=== PATIENT | female | born 1995 | race Caucasian/White ===

== ENCOUNTER → 2020-11-21 02:44 | Outpatient (CLI) | payer OTHER, SELFPAY ==
[2020-11-21 21:05] LABS: SARS-CoV-2 RNA PCR Negative
== END ==
PROVIDERS: Visit Provider Surgery
DX: Z01.812 Encounter for preprocedural laboratory examination (principal); Z20.822 Contact with and (suspected) exposure to COVID-19
CPT/HCPCS: C9803; U0003; U0005

== ENCOUNTER 2020-11-21 08:18 | Outpatient (CLI) | payer OTHER, SELFPAY ==
[2020-11-21 09:06] LABS: Alanine Aminotransferase 13 U/L (4-35); Albumin Level 3.9 g/dL (3.5-5.1); Alkaline Phosphatase 67 U/L (38-126); Amylase 52 U/L (30-110); Aspartate Amino Transferase 18 U/L (14-36); Bilirubin,Total 0.3 mg/dL (0.2-1.3); Lipase 27 U/L (23-300)
== END 2020-11-21 08:19 | disposition home or self-care (01) ==
LOC: ANHLAB 08:21
PROVIDERS: Visit Provider Surgery
DX: K80.10 Calculus of gallbladder with chronic cholecystitis without obstruction (principal); Z01.818 Encounter for other preprocedural examination
CPT/HCPCS: 36415; 80076; 82150; 83690; 86850; 86900; 86901; C9803; U0003; U0005

== ENCOUNTER 2020-11-24 01:01 | Day surgery (SDC) | payer OTHER, SELFPAY ==
[2020-11-15 16:00] VITALS: BMI 69.0
--- NOTE | 2020-11-23 09:34 | WPDANESEPPF ---
Anes - Initial Pre Proc Eval Procedure: Operation Date: 11/24/20 14:30 Proposed Procedures p Laparoscopic Cholecystectomy, Possible Open - Josselyn Munoz MD Date/Time: 11/23/20 09:34 Surgeon: Josselyn Munoz MD Pre Op Diagnosis: Chronic Cholecystitis with Calculus Patient Data Age: 25 Gender: F Height: 1.65 m Weight: 188.24 kg Allergies Allergy/AdvReac Type Severity Reaction Status Date / Time No Known Allergies Allergy Verified 11/24/20 13:02 Home Medications Medication Instructions Recorded Confirmed Type No Home Medications 07/18/20 11/24/20 History Patient hx anesthesia problems: none Family hx anesthesia problems: none PMFSH Family History Family History Mother Diabetes mellitus Social History Social History Smoking status: Never smoker Alcohol intake: never 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 Questions were solicited and answers provided to the satisfaction of the patient/family/POA.
[2020-11-24] VITALS (8 sets, daily range): BP systolic 107–153; BP diastolic 61–83; PULSE 62–98; RESP 12–20; TEMP 36.2–36.8; O2SAT 97–100
--- NOTE | 2020-11-24 11:08 | WPDHPUPDATE1 ---
History and Physical Update Update Date/Time: 11/24/20 11:08 History and Physical has been reviewed, including an updated exam of the patient. There are NO changes in the patient's condition. Risks, benefits, and alternatives have been discussed and questions answered. Patient agrees to proceed with procedure. Pt c increasing symptoms and decision to proceed c cholecystectomy at this time.
[2020-11-24] MEDS: ACETAMINOPHEN 500 MG TABLET 1000 MG PO (13:21)
[2020-11-24] MEDS: LACTATED RINGERS 1,000 ML 30 ML IV CONT ×2 (13:45→16:35)
[2020-11-24] MEDS: KETOROLAC 15 MG/ML VIAL (*BKC) IV PUSH (13:53)
[2020-11-24] MEDS: ceFAZolin 3 GM/D5W 100 ML 100 ML IVPB (15:06)
[2020-11-24] MEDS: BUPIVACAINE/EPINEPHRINE 0.5% 30 ML VIAL INFILTRATE (15:25)
--- NOTE | 2020-11-24 16:21 | P.OP_ITS ---
Procedure Note - Detailed Date of procedure: 11/24/20 Pre-op diagnosis: Chronic Cholecystitis with Calculus Post-op diagnosis: other (chronic cholecystitis c cholelithiasis, hydrops) Procedure performed: laparoscopic cholecystectomy Description of procedure: The patient was taken to the operating room placed in the supine position. After adequate induction of general anesthesia, the patient was prepped and draped in normal sterile fashion. A time-out was then performed to verify the patient's identity as well as the procedure being performed. I then made a 5 mm incision in the infraumbilical region. Through this, a Veress needle was placed into the peritoneal cavity and CO2 gas was then insufflated. After adequate pneumoperitoneum was achieved, the Veress needle was removed and a 5 mm trocar was placed through this incision. I then placed the laparoscope through this trocar site and under direct visualization placed a further 12 mm subxiphoid port as well as 2 additional 5 mm ports in the right upper abdomen. The gallbladder was then identified and was noted to be moderately inflamed and full of stones. I was able to place a grasper at the dome of the gallbladder and this was retracted anterior and cephalad up over the liver. A 2nd retractor was then placed at the infundibulum and retracted laterally, this allowed visualization of the triangle of Calot. I then was able to visualize the cystic duct in its entirety from its proximal insertion into the gallbladder, to its distal junction with the common hepatic/common bile duct junction. At this point, I carefully skeletonized the proximal cystic duct with the [place] dissector. I then clipped and transected the proximal cystic duct. At this point, the patient was noted to have hydrops cholecystitis. Next I visualized the cystic artery. Again the artery was skeletonized, clipped, and transected. I then used the Bovie cautery to take down the peritoneal attachments of the gallbladder off the liver bed. Once the gallbladder specimen was completely detached, an endo-pouch was placed through the 12 mm port site. I then placed the gallbladder specimen into the Endo pouch and removed the endo- pouch from the 12 mm port site. The specimen will now be sent to pathology for further review. I then copiously irrigated the right upper quadrant. Hemostasis was noted in the liver bed, the clips were noted to be in good position on both the cystic duct stump and the cystic artery stump. No other pathology was noted in the right upper quadrant. I then moved the laparoscope to the subxiphoid port. No iatrogenic injury or other pathology was noted in the lower abdomen. At this point, the abdomen was desufflated and all ports removed. The fascia of the 12 mm subxiphoid port was closed with a 0 Vicryl figure of 8 suture. All port sites were then closed with 4.O Monocryl subcuticular sutures. Dermabond was placed on each incision. The patient tolerated the procedure well, was extubated in the operating room postoperative and will be transferred to the recovery room in stable condition. Implants: none Anesthesia: GETA Surgeon: Josselyn Munoz MD Estimated blood loss (mL): 10 Drains: No Packing: No Pathology: yes Complications: No immediate complications Condition: stable Disposition: PACU Findings: chronic cholecystitis, cholelithiasis, hydrops
[2020-11-24] MEDS: fentaNYL CITRATE INJ (*CRX) 100 MCG/2 ML VIAL 25 MCG IV PUSH ×4 (16:49→16:57)
== END 2020-11-24 18:07 | disposition home or self-care (01) ==
PROVIDERS: Visit Provider Surgery
PROC: 0FT44ZZ Resection of Gallbladder, Percutaneous Endoscopic Approach (ICD-10-PCS; CPT 47562; principal; 2020-11-24 14:30)
DX: K80.10 Calculus of gallbladder with chronic cholecystitis without obstruction (principal); E66.01 Morbid (severe) obesity due to excess calories; Z68.44 Body mass index [BMI] 60.0-69.9, adult
CPT/HCPCS: 47562; 88304; A9270; J0690; J1100; J1885; J2250; J2405; J2704; J2710; J3010; J7030; J7120

== ENCOUNTER 2024-11-24 08:41 | Emergency (ER) | payer OTHER, SELFPAY ==
[2024-11-24 08:46] VITALS: BP 145/81; PULSE 91; RESP 20; TEMP 37.1; O2SAT 95
--- NOTE | 2024-11-24 08:52 | ED.URI ---
HPI - URI/Sore Throat General Chief Complaint: Upper Respiratory Infection Stated Complaint: cough/sob/aches Source: patient Mode of arrival: ambulatory Limitations: no limitations History of Present Illness HPI Narrative: 29-year-old female presented for complaint of cough, shortness of breath with exertion, body aches and low-grade fever. Onset 2 days. Denies nausea vomiting, diarrhea or lethargy. Taking [id number] medicines for symptoms. Endorses exposure to pneumonia. Related Data Allergies Allergy/AdvReac Type Severity Reaction Status Date / Time No Known Allergies Allergy Verified 11/24/24 08:50 Review of Systems Review of Systems: CONSTITUTIONAL:reports body aches, fever, chills EYES: Denies visual changes, redness, or discharge. ENT: Denies rhinorrhea, congestion, sore throat, or otalgia. CARDIOVASCULAR: Denies chest pain, palpitations, or edema. RESPIRATORY: Reports cough, sob with exertion denies wheezing. GASTROINTESTINAL: Denies abdominal pain, nausea, vomiting, or diarrhea. MUSCULOSKELETAL: reports back pain with cough. NEUROLOGIC: Denies headache, numbness, tingling, or weakness. 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 Please see nursing chart for further information. There is no relevant family history pertinent to the presenting complaint Exam Narrative: GENERAL: Well-appearing, in no acute distress. EYES: EOMI. No redness or drainage. Conjunctivae normal. ENT: Mucous membranes pink and moist. No rhinorrhea. TMs normal bilaterally. Throat normal. Uvula midline. NECK: Normal AROM. Supple. CHEST: No respiratory distress. lungs clear to all renee. speaks full sentences. HEART: Regular rate and rhythm. No murmur appreciated. ABDOMEN: Soft, large, nontender, nondistended, normal active bowel sounds. EXTREMITIES: Normal range of motion. SKIN: Warm, dry, no rash. Capillary refill normal. Normal skin turgor. NEURO: Alert and oriented x3. Gait steady. Course Course Emergency Course: Patient is aware of diagnosis, understands and agrees to treatment plan. Anticipatory guidance given. Patient agrees to follow-up as directed and is aware of reasons to seek care at the emergency department. Portions of this record may have been created with voice recognition software Level of Care: Express Care Visit Vital Signs Vital signs: Vital Signs Temperature 98.7 F 11/24/24 08:46 Pulse Rate 91 11/24/24 08:46 Respiratory Rate 20 11/24/24 08:46 Blood Pressure 145/81 H 11/24/24 08:46 Pulse Oximetry 95 11/24/24 08:46 Oxygen Delivery Room Air 11/24/24 08:46 Temperature 98.7 F 11/24/24 08:46 Pulse Rate 91 11/24/24 08:46 Respiratory Rate 20 11/24/24 08:46 Blood Pressure 145/81 H 11/24/24 08:46 Pulse Oximetry 95 11/24/24 08:46 Oxygen Delivery Room Air 11/24/24 08:46 MDM - URI/Sore Throat MDM Narrative Medical decision making narrative: neg flu and covid. Reviewed RX's. Discussed physical exam findings. Advised supportive measures and signs/symptoms to go to the ER. Pt is appropriate for outpt treatment and f/u. Differential Diagnosis Differential diagnosis: Likely upper respiratory infection, sinusitis, viral infection, bronchitis, influenza and pharyngitis Lab Data Labs: Lab Results 11/24/24 Range/Units 09:06 POC Influenza A Ag Pending POC Influenza B Ag Pending POC SARS CoV-2 Ag Pending Discharge Plan Discharge Clinical Impression: Viral infection Patient Disposition: Home, Self-Care Condition: Stable Instructions: Acute Bronchitis (ED) Additional Instructions: Flu and COVID negative. Acute bronchitis can be contagious because it is usually caused by infection with a virus or bacteria. It is usually for a few days but you can be contagious for up to one week. Avoid crowds until you do not have a fever and symptoms are improved Take medication as directed over the counter Cough syrup may cause drowsiness; avoid driving or take it at night time. Tylenol 1000mg every 8 hours as needed for pain Symptomatic treatment includes: rest, fluids, and increase humidity of the air at home. Follow up with your primary care provider as needed in 1 week Go to the ER for worsening symptoms or concerns Patient Language: Chinese Prescriptions: New benzonatate 200 mg capsule 200 mg PO TID PRN (Reason: cough) Qty: 20 0RF methylprednisolone [Medrol (Zuhair)] 4 mg tablets,dose pack See Rx Instructions .ROUTE .COMPLEX Qty: 21 0RF Rx Instructions: orally per package directions albuterol sulfate 90 mcg/actuation HFA aerosol inhaler 2 inh inhalation QID PRN (Reason: shortness of breath or wheezing) Qty: 8.5 0RF Follow-up/Referrals: Isa,HAIDER Boggs [Primary Care Provider] - Stand Alone Forms: Work/School Release IP Time of Disposition: 09:09
--- OUTSIDE RECORDS SUMMARY | 2024-11-24 08:58 | XMS_ITS | Data Portability ---
Author Organization [facility] Address [address] [place] [address] Care Team Providers Care Claims Adjuster Crop Name Role Phone TONYA, FLAKITA Primary Care Provider Assessment Encounter Date Assessment Date Assessment LastModified by Organization Details LastModified Time 12/11/2021 12/11/2021 Ms. Landry presented via telephone communication with c/o cough, stuffy nose x 1 week. Patient states she was treated for sinus infection a x 1 week ago with no improvement. Patient reports stomach cramps and diarrhea have resolved. Not available 12/11/2021 10:00:14 01/03/2022 01/03/2022 Ms. Landry presented via telephone communication with continued c/o cough, chest congestion and stuffy nose x 3 weeks. Not available 01/03/2022 14:53:03 02/21/2022 02/21/2022 Ms. Landry presented in office today for f/u appointment. Patient with c/o small whitish yellow debris on tonsils. Patient reports increased anxiety when driving. Not available 02/23/2022 13:00:47 05/07/2024 05/07/2024 Ms. Landry presented to the office today to reestablish care, having not been seen since February 2022. 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 The patient reports symptoms of pink-tinged urine and increased urinary frequency. Not available 05/09/2024 20:41:57 05/25/2024 05/25/2024 Ms. Landry presented to the ER on May 10 and May 20 with complaints of recurrent urinary tract infections (UTIs). She completed an 8-day course of antibiotics with reported improvement in her UTI symptoms. However, she is now experiencing left-sided pain and back pain. Not available 05/25/2024 17:26:43 Plan of Treatment Reminders Order Date Submit Date Provider Last Modified By Organization Details Last Modified Time Details Appointments None recorded. Lab culture, urine 2023 024 [facility], [address], [place], [address], 4 12:40:24 HIV 1 + 2, meaningfu l use set 2023 024 HERMILA [facility], [address], [place], [address], 4 07:14:08 urinalysi s, dipstick 2023 024 HERMILA In-Office Order, Internal Use Only DO Not Attach Compendium DO Not Attach Compendium, Do Not Delete/merge, [id number] 4 16:21:51 culture, urine 2023 024 HERMILA [facility], [address], [place], [address], 4 17:07:32 lipid panel, serum 2023 024 HERMILA [facility], [address], [place], [address], 4 10:37:09 HbA1c (hemoglob in A1c), blood 2023 024 HERMILA [facility], [address], [place], [address], 4 10:37:10 CMP, serum or plasma 2023 024 HERMILA [facility], [address], [place], [address], 4 10:37:09 CBC w/ auto diff 2023 024 HERMILA [facility], [address] [facility], [facility] [address], [place], [address], 4 10:37:11 vitamin D, 25-hydrox y, total, serum 2023 024 HERMILA [facility], [address] [facility], [facility] [address], [place], [address], 4 10:37:12 Referral gynecolog ist referral 2023 024 [email or web address] Radha [facility], [address] [facility] , [address], [place], [address], 5 15:12:11 Procedures None recorded. Surgeries None recorded. Imaging US, kidney 2023 024 [facility] ([facility], [address] [place], [address], 4 11:53:16 Medication Orders sulfameth oxazole 800 mg-trimet hoprim 160 mg tablet 2023 024 [id number], [address] , [place], [place], [id number], 4 17:19:06 Zithromax Z-Zuhair 250 mg tablet 2021 022 tkinerdma [facility] #[id number], [address], [place], [place], [id number], 2 15:12:05 fluticaso ne propionat e 50 mcg/actua tion nasal spray,mc pension 2021 022 [facility] #[id number], [address], [place], [place], [id number], 2 15:12:08 Patient TargetsNo targets recorded. Patient Instructions Encounter Date Encounter Id Patient Instructions Last Modified By Organization Details Last Modified Time 12/11/2021 [id number] This visit was completed via telephone due to the restrictions of the COVID 19 pandemic. All issues were discussed and addressed but no physical exam was performed. If at any time during this visit it was deemed necessary for the patient to be evaluated in office, then he/she would be directed to come in for an office visit. The patient gave verbal consent to this visit. - Always present to ER or Urgent Care with any progression of/alarming symptoms, significant changes in symptoms or any concerning or urgent matters I have reviewed the provider's note and I agree with the documented assessment and plan. Moni Pablo MD [email or web address] Not available 12/12/2021 08:11:25 01/03/2022 [id number] This visit was completed via telephone due to the restrictions of the COVID 19 pandemic. All issues were discussed and addressed but no physical exam was performed. If at any time during this visit it was deemed necessary for the patient to be evaluated in office, then he/she would be directed to come in for an office visit. The patient gave verbal consent to this visit. - Always present to ER or Urgent Care with any progression of/alarming symptoms, significant changes in symptoms or any concerning or urgent matters Not available 01/03/2022 14:55:06 02/21/2022 [id number] learning about low-carbohydrate diets Not available 02/23/2022 13:07:20 tonsil stones: care instructions Not available 02/21/2022 15:38:11 - Always present to ER or Urgent Care with any progression of/alarming symptoms, significant changes in symptoms or any concerning or urgent matters Not available 02/23/2022 13:00:43 05/07/2024 [id number] A healthy lifestyle: care instructions Not available 05/09/2024 20:40:53 - limit/avoid consumption of processed foods. choose a diet rich in fruits, and vegetables, low fat, low carbs. - Eat less salt (sodium) - exercise for at least 30 minutes a day on most days of the week - Limit the amount of caffeine and alcohol you drink - work on obtaining and maintaining a healthy weight Not available 05/09/2024 20:41:28 - Always present to ER or Urgent Care with any progression of/alarming symptoms, significant changes in symptoms or any concerning or urgent matters Not available 05/07/2024 15:31:13 05/25/2024 [id number] - Always present to ER or Urgent Care with any progression of/alarming symptoms, significant changes in symptoms or any concerning or urgent matters Not available 05/25/2024 16:48:22 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 Sc reening for malignant neoplasm of cervix Referring Physician: Flakita Castaneda, Family Medicine, Encounter Date: 05/25/2024 Results Created Date Observation Date Name Description Value Unit Range Abnormal Flag Note LastModifiedBy Organization Detail LastModifiedTime 05/07/20 24 05/08/2024 LIPID PANEL cholesterol, total 194 mg/dL 100-19 9 Not Available [facility] ([facility]) [address] [place], [address], 05/08/2024 10:37:09 05/07/20 24 05/08/2024 LIPID PANEL triglyceride s 257 mg/dL 0-149 above high normal Not Available [facility] ([facility]) [address] [place], [address], 05/08/2024 10:37:09 05/07/20 24 05/08/2024 LIPID PANEL HDL cholesterol 36 mg/dL >39 below low normal Not Available [facility] ([facility]) [address] [place], [address], 05/08/2024 10:37:09 05/07/20 24 05/08/2024 LIPID PANEL VLDL cholesterol jonas 45 mg/dL 5-40 above high normal Not Available [facility] ([facility]) [address] [place], [address], 05/08/2024 10:37:09 05/07/20 24 05/08/2024 LIPID PANEL LDL chol calc ([facility]) 113 mg/dL 0-99 above high normal Not Available [facility] ([facility]) [address] [place], [address], 05/08/2024 10:37:09 05/07/20 24 05/08/2024 COMP. METAB OLIC PANEL (14) glucose - mg/dL Test not perfo rmed. Serum was in conta ct with cells when recei filipe which will make the resul t inacc urate . Not Available [facility] ([facility]) [address] [place], [address], 05/08/2024 10:37:09 05/07/20 24 05/08/2024 COMP. METAB OLIC PANEL (14) BUN 12 mg/dL 6-20 Not Available [facility] ([facility]) [address] [place], [address], 05/08/2024 10:37:09 05/07/20 24 05/08/2024 COMP. METAB OLIC PANEL (14) creatinine 0.62 mg/dL 0.57-1 .00 Not Available [facility] ([facility]) [address] [place], [address], 05/08/2024 10:37:09 05/07/20 24 05/08/2024 COMP. METAB OLIC PANEL (14) eGFR 124 mL/mi n/1.7 3 >59 Not Available [facility] ([facility]) [address] [place], [address], 05/08/2024 10:37:09 05/07/20 24 05/08/2024 COMP. METAB OLIC PANEL (14) BUN/creatini ne ratio 19 9-23 Not Available [facility] ([facility]) [address] [place], [address], 05/08/2024 10:37:09 05/07/20 24 05/08/2024 COMP. METAB OLIC PANEL (14) sodium 139 mmol/ L 134-14 4 Not Available [facility] ([facility]) [address] [place], [address], 05/08/2024 10:37:09 05/07/20 24 05/08/2024 COMP. METAB OLIC PANEL (14) potassium - mmol/ L Test not perfo rmed. Serum was in conta ct with cells when recei filipe which will make the resul t inacc urate . Not Available [facility] ([facility]) [address] [facility] [place], [address], 05/08/2024 10:37:09 05/07/20 24 05/08/2024 COMP. METAB OLIC PANEL (14) chloride 102 mmol/ L 96-106 Not Available [facility] ([facility]) [address] [facility] [place], [address], 05/08/2024 10:37:09 05/07/20 24 05/08/2024 COMP. METAB OLIC PANEL (14) carbon dioxide, total 21 mmol/ L 20-29 Not Available [facility] ([facility]) [address] [facility], [place], [address], 05/08/2024 10:37:09 05/07/20 24 05/08/2024 COMP. METAB OLIC PANEL (14) calcium 9.3 mg/dL 8.7-10 .2 Not Available [facility] ([facility]) [address] [place], [address], 05/08/2024 10:37:09 05/07/20 24 05/08/2024 COMP. METAB OLIC PANEL (14) protein, total 6.9 g/dL 6.0-8. 5 Not Available [facility] ([facility]) [address] [facility] [place], [address], 05/08/2024 10:37:09 05/07/20 24 05/08/2024 COMP. METAB OLIC PANEL (14) albumin 4.1 g/dL 4.0-5. 0 Not Available [facility] ([facility]) [address] [place], [address], 05/08/2024 10:37:09 05/07/20 24 05/08/2024 COMP. METAB OLIC PANEL (14) globulin, total 2.8 g/dL 1.5-4. 5 Not Available [facility] ([facility]) [address] [facility], [place], [address], 05/08/2024 10:37:09 05/07/20 24 05/08/2024 COMP. METAB OLIC PANEL (14) bilirubin, total 0.2 mg/dL 0.0-1. 2 Not Available [facility] ([facility]) [address] [place], [address], 05/08/2024 10:37:09 05/07/20 24 05/08/2024 COMP. METAB OLIC PANEL (14) alkaline phosphatase 71 IU/L 44-121 Not Available [facility] ([facility]) [address] [place], [address], 05/08/2024 10:37:09 05/07/20 24 05/08/2024 COMP. METAB OLIC PANEL (14) AST (SGOT) 16 IU/L 0-40 Not Available [facility] ([facility]) [address] [place], [address], 05/08/2024 10:37:09 05/07/20 24 05/08/2024 COMP. METAB OLIC PANEL (14) ALT (SGPT) 17 IU/L 0-32 Not Available [facility] ([facility]) [address] [place], [address], 05/08/2024 10:37:09 05/07/20 24 05/08/2024 HEMOG LOBIN A1C hemoglobin A1C 5.8 % 4.8-5. 6 above high normal Predi abete s: 5.7 - 6.4 Diabe betty: >6.4 Glyce stacy contr ol for adult s with diabe betty: <7.0 Not Available [facility] ([facility]) [address] [facility], [place], [address], 05/08/2024 10:37:10 05/07/20 24 05/08/2024 CBC WITH DIFFE RENTI AL/PL ATELE T WBC 12.6 x10e3 /uL 3.4-10 .8 above high normal Not Available [facility] ([facility]) [address] [facility], [place], [address], 05/08/2024 10:37:11 05/07/20 24 05/08/2024 CBC WITH DIFFE RENTI AL/PL ATELE T RBC 4.74 x10e6 /uL 3.77-5 .28 Not Available [facility] ([facility]) [address] [facility], [place], [address], 05/08/2024 10:37:11 05/07/20 24 05/08/2024 CBC WITH DIFFE RENTI AL/PL ATELE T hemoglobin 13.1 g/dL 11.1-1 5.9 Not Available [facility] ([facility]) [address] [facility], [place], [address], 05/08/2024 10:37:11 05/07/20 24 05/08/2024 CBC WITH DIFFE RENTI AL/PL ATELE T hematocrit 40.6 % 34.0-4 6.6 Not Available [facility] ([facility]) [address] [place], [address], 05/08/2024 10:37:11 05/07/20 24 05/08/2024 CBC WITH DIFFE RENTI AL/PL ATELE T MCV 86 fL 79-97 Not Available [facility] ([facility]) [address] [facility], [place], [address], 05/08/2024 10:37:11 05/07/20 24 05/08/2024 CBC WITH DIFFE RENTI AL/PL ATELE T MCH 27.6 pg 26.6-3 3.0 Not Available [facility] ([facility]) [address] [facility], [place], [address], 05/08/2024 10:37:11 05/07/20 24 05/08/2024 CBC WITH DIFFE RENTI AL/PL ATELE T MCHC 32.3 g/dL 31.5-3 5.7 Not Available [facility] ([facility]) [address] [facility], [place], [address], 05/08/2024 10:37:11 05/07/20 24 05/08/2024 CBC WITH DIFFE RENTI AL/PL ATELE T RDW 14.5 % 11.7-1 5.4 Not Available [facility] ([facility]) [address] [facility], [place], [address], 05/08/2024 10:37:11 05/07/20 24 05/08/2024 CBC WITH DIFFE RENTI AL/PL ATELE T platelets 382 x10e3 /uL 150-45 0 Not Available [facility] ([facility]) [address] [facility], [place], [address], 05/08/2024 10:37:11 05/07/20 24 05/08/2024 CBC WITH DIFFE RENTI AL/PL ATELE T neutrophils 65 % notest ab. Not Available [facility] ([facility]) [address] [place], [address], 05/08/2024 10:37:11 05/07/20 24 05/08/2024 CBC WITH DIFFE RENTI AL/PL ATELE T lymphs 27 % notest ab. Not Available [facility] ([facility]) [address] [place], [address], 05/08/2024 10:37:11 05/07/20 24 05/08/2024 CBC WITH DIFFE RENTI AL/PL ATELE T monocytes 5 % notest ab. Not Available [facility] ([facility]) [address] [place], [address], 05/08/2024 10:37:11 05/07/20 24 05/08/2024 CBC WITH DIFFE RENTI AL/PL ATELE T eos 1 % notest ab. Not Available [facility] ([facility]) [address] [facility], [place], [address], 05/08/2024 10:37:11 05/07/20 24 05/08/2024 CBC WITH DIFFE RENTI AL/PL ATELE T basos 1 % notest ab. Not Available [facility] ([facility]) [address] [facility], [place], [address], 05/08/2024 10:37:11 05/07/20 24 05/08/2024 CBC WITH DIFFE RENTI AL/PL ATELE T neutrophils (absolute) 8.4 x10e3 /uL 1.4-7. 0 above high normal Not Available [facility] ([facility]) [address] [facility], [place], [address], 05/08/2024 10:37:11 05/07/20 24 05/08/2024 CBC WITH DIFFE RENTI AL/PL ATELE T lymphs (absolute) 3.4 x10e3 /uL 0.7-3. 1 above high normal Not Available [facility] ([facility]) [address] [place], [address], 05/08/2024 10:37:11 05/07/20 24 05/08/2024 CBC WITH DIFFE RENTI AL/PL ATELE T monocytes(ab solute) 0.6 x10e3 /uL 0.1-0. 9 Not Available [facility] ([facility]) [address] [place], [address], 05/08/2024 10:37:11 05/07/20 24 05/08/2024 CBC WITH DIFFE RENTI AL/PL ATELE T eos (absolute) 0.1 x10e3 /uL 0.0-0. 4 Not Available [facility] ([facility]) [address] [facility], [place], [address], 05/08/2024 10:37:11 05/07/20 24 05/08/2024 CBC WITH DIFFE RENTI AL/PL ATELE T baso (absolute) 0.1 x10e3 /uL 0.0-0. 2 Not Available [facility] ([facility]) [address] [facility], [place], [address], 05/08/2024 10:37:11 05/07/20 24 05/08/2024 CBC WITH DIFFE RENTI AL/PL ATELE T immature granulocytes 1 % notest ab. Not Available [facility] ([facility]) [address] [facility], [place], [address], 05/08/2024 10:37:11 05/07/20 24 05/08/2024 CBC WITH DIFFE RENTI AL/PL ATELE T immature grans (abs) 0.1 x10e3 /uL 0.0-0. 1 Not Available [facility] ([facility]) [address] [facility], [place], [address], 05/08/2024 10:37:11 05/07/20 24 05/08/2024 VITAM IN D, 25-HY DROXY vitamin D, 25-hydroxy 14.9 NG/mL 30.0-1 00.0 below low normal Vitam in D defic iency has been defin ed by the Insti tute of Medic ine and an Endoc rine Socie ty pract ice guide line as a level of serum 25-OH vitam in D less than 20 ng/mL (1,2) . The Endoc rine Socie ty went on to furth er defin e vitam in D insuf ficie ncy as a level betwe en 21 and 29 ng/mL (2). 1. IOM (Inst itute of Medic ine). 2010. Dieta ry refer ence juan es for calci um and D. Jin smith [place]: The [employer] n[employer] . 2. Holic tara MF, Antonella mcgrath [place], Mallory off-F errar i ELLIOTT, et al. Evalu ation , treat ment, and preve ntion of vitam in D defic iency : an Endoc rine Socie ty clini jonas pract ice guide line. JCEM. 2010; 96(7) :1911 -30. Not Available [facility] ([facility]) [address] [facility], [place], [address], 05/08/2024 10:37:12 05/07/20 24 05/10/2024 URINE CULTU RE, ROUTI NE urine culture, routine FINAL REPORT Not Available [facility] ([facility]) [address] [facility], [place], [address], 05/10/2024 17:07:32 05/07/20 24 05/10/2024 URINE CULTU RE, ROUTI NE result 1 COMMEN T Mixed uroge nital amira 25,00 0-50, 000 colon y formi ng units per mL Not Available [facility] ([facility]) [address] [facility], [place], [address], 05/10/2024 17:07:32 05/07/20 24 05/07/2024 urina lysis , dipst ick Leukocytes Negati ve Not Available In-Office Order Internal Use Only DO Not Attach Compendium DO Not Attach Compendium, Do Not Delete/merge, [id number] 05/07/2024 15:28:39 05/07/20 24 05/07/2024 urina lysis , dipst ick Nitrite negati ve Not Available In-Office Order Internal Use Only DO Not Attach Compendium DO Not Attach Compendium, Do Not Delete/merge, [id number] 05/07/2024 15:28:39 05/07/20 24 05/07/2024 urina lysis , dipst ick Urobilinogen .2 Not Available In-Of fice Order Internal Use Only DO Not Attach Compendium DO Not Attach Compendium, Do Not Delete/merge, [id number] 05/07/2024 15:28:39 05/07/20 24 05/07/2024 urina lysis , dipst ick Protein Negati ve Not Available In-Office Order Internal Use Only DO Not Attach Compendium DO Not Attach Compendium, Do Not Delete/merge, 05/07/2024 15:28:39 05/07/20 24 05/07/2024 urina lysis , dipst ick pH 5.0 Not Available In-Office Order Internal Use Only DO Not Attach Compendium DO Not Attach Compendium, Do Not Delete/merge, 05/07/2024 15:28:39 05/07/20 24 05/07/2024 urina lysis , dipst ick Blood Negati ve Not Available In-Office Order Internal Use Only DO Not Attach Compendium DO Not Attach Compendium, Do Not Delete/merge, 05/07/2024 15:28:39 05/07/20 24 05/07/2024 urina lysis , dipst ick Specific [place] 1.030 Not Available In-Off ice Order Internal Use Only DO Not Attach Compendium DO Not Attach Compendium, Do Not Delete/merge, 05/07/2024 15:28:39 05/07/20 24 05/07/2024 urina lysis , dipst ick Ketone Negati ve Not Available In-Office Order Internal Use Only DO Not Attach Compendium DO Not Attach Compendium, Do Not Delete/merge, 05/07/2024 15:28:39 05/07/20 24 05/07/2024 urina lysis , dipst ick Bilirubin Negati ve Not Available In-Office Order Internal Use Only DO Not Attach Compendium DO Not Attach Compendium, Do Not Delete/merge, 05/07/2024 15:28:39 05/07/20 24 05/07/2024 urina lysis , dipst ick Glucose Negati ve Not Available In-Office Order Internal Use Only DO Not Attach Compendium DO Not Attach Compendium, Do Not Delete/merge, 05/07/2024 15:28:39 05/07/20 24 05/07/2024 urina lysis , dipst ick Appearance Slight ly Cloudy Not Available In-Office Order Internal Use Only DO Not Attach Compendium DO Not Attach Compendium, Do Not Delete/merge, [id number] 05/07/2024 15:28:39 05/07/20 24 05/07/2024 urina lysis , dipst ick Color Dark Yellow Not Available In-Office Order Internal Use Only DO Not Attach Compendium DO Not Attach Compendium, Do Not Delete/merge, [id number] 05/07/2024 15:28:39 05/25/20 24 05/26/2024 HIV AB/P2 4 AG WITH REFLE X HIV Ab/P24 Ag screen NON REACTI VE nonrea ctive HIV-1 /HIV- 2 antib odies and HIV-1 p24 antig en were NOT detec ra. There is no labor atory evide nce of HIV infec tion. HIV Negat laurent Not Available [facility] ([facility]) [address] [facility], [place], [address], 05/26/2024 07:14:08 Result Notes None recorded. Problems Name Problem SNOMED Code Status Onset Date Resolution Date Notes Provider Name and Address Organization Details Recorded Time Acute pharyngitis 934926584 Active 2017 FLAKITA CASTANEDA NP Attn: Ludwin salinas,[address] [facility], [place], [address], [facility] 1 13:00:56 Acute bronchitis 18410872 Active 2018 FLAKITA CASTANEDA NP Attn: Accountin g,[address] [facility], [place], [address], [place] - [facility] 1 13:00:56 History of SARS-CoV-2 6398160643996 61470 Active 2020 FLAKITA CASTANEDA NP Attn: Ludwin g,[address] [facility], [place], [address], [place] - [facility] 1 14:53:58 Prediabetes 514059254 Active 2020 FLAKITA CASTANEDA NP Attn: Accountin g,[address] [facility], [place], [address], [place] - [facility] 4 14:15:12 Hemorrhoids 71416365 Active 2020 FLAKITA CASTANEDA NP Attn: Quanpaulina salinas,[address] [facility], [place], [place], [address] [place] [address] 2, [place] - [facility] 1 14:54:03 Pneumonia caused by SARS-CoV-2 9611004049160 54975 Active 2020 FLAKITA CASTANEDA NP Attn: Quanpaulina salinas,[address] [facility], [place], [place], [address] [place] [address] 2, [place] - [facility] 1 14:54:46 Vitamin D deficiency 03039359 Active 2023 FLAKITA CASTANEDA NP Attn: Ludwin brad,[address] [place], [place], [address] [place] [address] 2, [place] - [facility] 4 14:15:39 Recurrent urinary tract infection 346896528 Active 2023 FLAKITA CASTANEDA NP Attn: Quanpaulina salinas,[address] [place], [place], [address] [place] [address] 2, [place] - [facility] 4 17:25:01 Left flank pain 791160105 Active 2023 FLAKITA CASTANEDA NP Attn: Quanpaulina salinas,[address] [facility], [place], [place], [address] [place] [address] 2, [place] - [facility] 4 17:25:03 Secondary eczematous condition 969249599 Active FLAKITA CASTANEDA NP Attn: Quanpaulina salinas,[address] [facility], [place], [place], [address] [place] [address] 2, [place] - [facility] 1 02:20:13 Morbid obesity 203348077 Active FLAKITA CASTANEDA NP Attn: Quanpaulina salinas,[address] [place] [address], [address] [place] [address] 2, [place] - [facility] 1 02:20:13 Pleurisy 432156671 Active FLAKITA CASTANEDA NP Attn: Quanpaulina salinas,[address] [place], [place], [address] [place] [address] 2, [place] - [facility] 1 02:20:13 Problem Notes None recorded. Procedures Surgical History Date Name Laterality Status Provider Name and Address Organization Details Recorded Time 11/25/19 21 cholecystectomy completed Radha Soto [place] - [facility] 01/02/2021 12:51:24 Imaging Results None recorded. Procedure Notes None recorded. Medical Equipment None Reported. Allergies No known drug allergies Medications Name Sig Start Date Stop Date Status Note LastModified by Organization Details LastModified Time amoxicillin 500 mg capsule TAKE 1 CAPSULE BY MOUTH THREE TIMES DAILY FOR 14 DAYS 01/03 completed Not Available Not Available Not Available azithromyci n 250 mg tablet TK 2 TS PO ON DAY 1, THEN TK 1 T PO D FOR 4 DAYS 02/21 completed Not Available Not Available Not Available phenazopyri dine 200 mg tablet TAKE 1 TABLET BY MOUTH THREE TIMES DAILY FOR 3 DAYS 05/25 completed Not Available Not Available Not Available ondansetron HCl 4 mg tablet 01/03 completed Not Available Not Available Not Available dexamethaso ne 6 mg tablet 01/03 completed Not Available Not Available Not Available triamcinolo ne acetonide 0.5 % topical ointment PPLY A THIN LAYER TO THE AFFECTED AREA(S) BY TOPICAL ROUTE ONCE DAILY Q HS 02/01 completed Not Available Not Available Not Available sulfamethox azole 800 mg-trimetho prim 160 mg tablet Take 1 tablet every 12 hours by oral route for 7 days. active Not Available Not Available No t Available tramadol 50 mg tablet TAKE 1 TABLET BY MOUTH EVERY 8 HOURS NEEDED FOR MODERATE TO SEVERE PAIN 01/03 completed Not Available Not Available Not Available amoxicillin 500 mg tablet TAKE 1 TABLET BY MOUTH TWICE DAILY FOR 7 DAYS 05/07 completed Not Available Not Available Not Available benzonatate 100 mg capsule TAKE 1 CAPSULE BY MOUTH THREE TIMES DAILY FOR UP TO 10 DAYS NEEDED FOR COUGH 05/07 completed Not Available Not Available Not Available cephalexin 500 mg capsule TAKE 1 CAPSULE BY MOUTH THREE TIMES DAILY FOR 7 DAYS 05/25 completed Not Available Not Available Not Available polymyxin B sulfate 10,000 unit-trimet hoprim 1 mg/mL eye drops 05/07 completed Not Available Not Available Not Available Cataflam 50 mg tablet Take 1 tablet 3 times a day by oral route. 12/18 completed rx'd by er Not Available Not Available Not Available ergocalcife rol (vitamin D2) 1,250 mcg (50,000 unit) capsule TAKE 1 CAPSULE BY MOUTH EVERY WEEK active Not Available Not Available No t Available Anusol-HC 25 mg rectal suppository Insert 1 supposito ry twice a day by rectal route for 7 days. 11/22 completed Not Available Not Available Not Available methylpredn isolone 4 mg tablets in a dose pack FOLLOW PACKAGE DIRECTION S 05/07 completed Not Available Not Available Not Available albuterol sulfate HFA 90 mcg/actuati on aerosol inhaler INHALE 2 PUFFS BY MOUTH EVERY 4 TO 6 HOURS NEEDED 02/21 completed Not Available Not Available Not Available fluticasone propionate 50 mcg/actuati on nasal spray,suspe nsion [place] 1 spray every day by intranasa l route as needed. 02/21 completed Not Available Not Available Not Available doxycycline hyclate 100 mg tablet Take 1 tablet twice a day by oral route for 7 days. 08/08 completed Not Available Not Available Not Available amoxicillin 875 mg-potassiu m clavulanate 125 mg tablet TAKE 1 TABLET BY MOUTH TWICE DAILY FOR 10 DAYS 01/03 completed Not Available Not Available Not Available Benadryl 25 mg capsule Take 2 capsules every 4-6 hours by oral route. 02/01 completed Not Available Not Available Not Available nitrofurant oin monohydrate /macrocryst als 100 mg capsule TAKE 1 CAPSULE BY MOUTH TWICE DAILY FOR 7 DAYS FOR UTI 05/07 completed Not Available Not Available Not Available Mucus Relief ER 600 mg tablet, extended release TAKE 1 TABLET BY MOUTH TWICE DAILY 05/07 completed Not Available Not Available Not Available Vitals Date Recorded Body height Provider Name an d Address Organization Details Last Updated DateTime 12/11/2021 170.18 cm Myah Warner [place] [facility] 022 09:39:43 Date Recorded Body height Provider Name an d Address Organization Details Last Updated DateTime 01/03/2022 170.18 cm Carmen Fortune LPN [place] [facility] 01/03 14:28:15 Date Recorded Body height Body mass index (BMI) Body weight Oxygen saturation Oxygen saturation in Arterial blood by Pulse oximetry Heart rate Respiratory rate Body temperature Systolic blood pressure Diastolic blood pressure Provider Name and Address Organization Details Last Updated DateTime 2 170.18 cm 65 kg/m2 144012. 58 g 97 % 97 % 93 /min 16 /min 97.1 [degF] 136 mm[Hg] 86 mm[Hg] Sarah Ricardo MA [facility] 2 15:11:34 Date Recorded Body height Body mass index (BMI) Body weight Respiratory rate Body temperature Heart rate Oxygen saturation Oxygen saturation in Arterial blood by Pulse oximetry Systolic blood pressure Diastolic blood pressure Provider Name and Address Organization Details Last Updated DateTime 4 165.1 cm 68.7 kg/m2 242204. 35 g 16 /min 97.1 [degF] 84 /min 98 % 98 % 138 mm[Hg] 81 mm[Hg] Myah Warner MA [facility] 4 15:17:34 Date Recorded Body height Respiratory rate Body mass index (BMI) Body weight Body temperature Heart rate Oxygen saturation Oxygen saturation in Arterial blood by Pulse oximetry Systolic blood pressure Diastolic blood pressure Provider Name and Address Organization Details Last Updated DateTime 4 165.1 cm 16 /min 69.4 kg/m2 111104. 07 g 96.6 [degF] 70 /min 98 % 98 % 138 mm[Hg] 83 mm[Hg] Myah Warner MA [facility] 4 16:44:11 Social History Question Answer Notes LastModified by Organizat ion Details LastModified Time Tobacco Smoking Status Former Smoker Emily Serrano MA [facility], [facility] 09/14/2020 16:59:53 What Is Your Level Of Alcohol Consumption? Occasional [id number] Information not available 07/12/2020 Are You Blind Or Do You Have Difficulty Seeing? Yes Glasses Information not available 01/02/2021 What Is Your Level Of Caffeine Consumption? Heavy 3-4 Bottles Mtn Dew Per Day Information not available 01/02/2021 In The 14 Days Before Symptom Onset, Have You Had Close Contact With A Laboratory-breann schroedered COVID-19 While That Case Was Ill? No Information not available 11/22/2021 In The 14 Days Before Symptom Onset, Have You Had Close Contact With A Person Who Is Under Investigation For COVID-19 While That Person Was Ill? No Information not available 11/22/2021 Have You Been To An Area Known To Be High Risk For COVID-19? No Information not available 11/22/2021 Are You Currently Employed? Yes Information not available 01/02/2021 Are You Deaf Or Do You Have Serious Difficulty Hearing? No Information not available 01/02/2021 What Type Of Diet Are You Following? REGULAR Information not available 11/22/2021 What Is Your Occupation? [employer] Information not available 01/02/2021 Are There Any Guns Present In Your Home? No Information not available 05/25/2024 Live Alone Or With Others? With Others [email or web address] Information not available 12/13/2015 Do You Have A High School Diploma Or Higher Education? Yes Information not available 01/02/2021 Do You Sometimes Have To Miss Your Medical Appointments Due To Difficult Getting Transportation? No Information not available 01/02/2021 Do You Feel Unfairly Treated Due To Things Such As Race, Age, Gender, Disability Or Some Other Reason? No Information not available 01/02/2021 Do You Feel Physically And Emotionally Safe While Living At Home? Yes Information not available 01/02/2021 Do You Feel Physically And Emotionally Safe In Your Neighborhood Or Other Public Places? Yes Information not available 01/02/2021 What Was The Date Of Your Most Recent Tobacco Screening? 05/25/2024 Information not available 05/25/2024 How Many Children Do You Have? 0 [id number] Information not available 07/12/2020 What Is Your Relationship Status? Single Information not available 01/02/2021 Do You Use Your Seat Belt Or Car Seat Routinely? Yes Information not available 11/22/2021 Seat Belts Used Routinely Yes [email or web address] Information not available 12/13/2015 Smoke Alarm In Home Yes [email or web address] Information not available 12/13/2015 Do You Have Smoke And Carbon Monoxide Detectors In Your Home? Yes Information not available 01/02/2021 Are You Passively Exposed To Smoke? No Information not available 01/02/2021 Do You Feel Stressed (tense, Restless, Nervous, Or Anxious, Or Unable To Sleep At Night)? [id number] Information not available 11/22/2021 Do You Use Any Illicit Or Recreational Drugs? No Declines Information not available 01/02/2021 Do You Use Sunscreen Routinely? No Information not available 05/25/2024 Has Tobacco Cessation Counseling Been Provided? No Information not available 01/02/2021 Do You Or Have You Ever Used Any Other Forms Of Tobacco Or Nicotine? No Information not available 01/02/2021 Sex: Female Functional Status Question Answer Note LastModified by Organization D etails LastModified Time Are you able to care for yourself? Yes [id number] Information n ot available 07/12/2020 What is your exercise level? None Information not available 11/22/2021 Mental Status None recorded. Family History Relationship Description Onset Age of this Age Resolved Age Notes LastModified by Organization Details LastModified Time Mother Asthma [email or web address] Not available 12/13/2015 11:20:21 Mother Diabetes mellitus Not available 12/12 11:20:21 Brother Attention deficit hyperactivit y disorder [email or web address] Not available 12/18 16:05:03 Medical History Condition Response Coronary Artery Disease N Other N High Blood Pressure N Atrial Fibrillation N Kidney or Bladder Problems N Thyroid Problems N GI Problems N Depression N COPD N Blood Clots N Skin Problems N Anemia N Heart Attack ([place]) N Anxiety Disorder N Diabetes N Muscle, Joint, or Bone Problems N Seizures/Epilepsy N Acid Reflux (GERD) N Cancer N Stroke N Asthma N Allergies N High Cholesterol N Hepatitis N Liver Disease N Headaches N Heart Failure N Osteoporosis N Gynecological HistoryNo gynecological history recorded. Obstetrics History GPAL:G 0 P 0 0 0 0 Immunizations Vaccine Type Date Status Note Provider Nam e and Address Organization Details Recorded Time MMR 9 completed FLAKITA CASTANEDA NP Attn: Accounting,[address] [facility], [place], [address], [facility] 05/07/2024 15:29:01 MMR 5 completed FLAKITA TONYA, TANK DRIVER Attn: Accounting,[address], [place], [address], [place] [facility] 05/07/2024 15:29:01 Tdap 9 completed FLAKITA TONYA, TANK DRIVER Attn: Accounting,[address], [place], [address], [place] [facility] 05/07/2024 15:29:01 OPV 5 completed FLAKITA TONYA, TANK DRIVER Attn: Accounting,[address], [place], [address], [place] [facility] 05/07/2024 15:29:01 OPV 9 completed FLAKITA TONYA, TANK DRIVER Attn: Accounting,[address], [place], [address], [place] [facility] 05/07/2024 15:29:01 OPV 5 completed FLAKITA TONYA, TANK DRIVER Attn: Accounting,[address], [place], [address], [place] [facility] 05/07/2024 15:29:01 OPV 5 completed FLAKITA TONYA, TANK DRIVER Attn: Accounting,[address], [place], [address], [place] [facility] 05/07/2024 15:29:01 OPV 4 completed FLAKITA TONYA, TANK DRIVER Attn: Accounting,[address], [place], [address], [place] [facility] 05/07/2024 15:29:01 DTP-Hib 5 completed FLAKITA TONYA, TANK DRIVER Attn: Accounting,[address], [place], [address], [place] [facility] 05/07/2024 15:29:01 DTP-Hib 5 completed FLAKITA TONYA, TANK DRIVER Attn: Accounting,[address], [place], [place], [address] [place] [address], [place] [facility] 05/07/2024 15:29:01 DTP-Hib 5 completed FLAKITA CASTANEDA NP Attn: Accounting,[address] [place], [place], [address] [place] [address], [place] [facility] 05/07/2024 15:29:01 DTP-Hib 4 completed FLAKITA CASTANEDA NP Attn: Accounting,[address] [facility], [place], [place], [address] [place] [address], [place] [facility] 05/07/2024 15:29:01 influenza, split (incl. purified surface antigen) 9 completed FLAKITA CASTANEDA NP Attn: Accounting,[address] [place], [place], [address] [place] [address], [place] [facility] 05/07/2024 15:29:01 HPV, quadrivalent 0 completed FLAKITA CASTANEDA NP Attn: Accounting,[address] [place], [place], [address] [place] [address], [place] [facility] 05/07/2024 15:29:01 HPV, quadrivalent 9 completed FLAKITA CASTANEDA NP Attn: Accounting,[address] [place], [place], [address] [place] [address], [place] [facility] 05/07/2024 15:29:01 HPV, quadrivalent 9 completed FLAKITA CASTANEDA NP Attn: Accounting,[address] [place], [place], [address] [place] [address], [place] [facility] 05/07/2024 15:29:01 Hep B, adolescent or pediatric 4 completed FLAKITA CASTANEDA NP Attn: Accounting,[address] [place], [place], [address] [place] [address], [place] [facility] 05/07/2024 15:29:01 Hep B, adolescent or pediatric 5 completed FLAKITA CASTANEDA NP Attn: Accounting,[address] [place], [place], [address] [place] [address], [place] [facility] 05/07/2024 15:29:02 Hep B, adolescent or pediatric 4 completed FLAKITA CASTANEDA NP Attn: Accounting,[address] [facility], [place], [address], [place] [facility] 05/07/2024 15:29:02 Hep A, pediatric, unspecified formulation 0 completed FLAKITA CASTANEDA NP Attn: Accounting,[address] [facility], [place], [address], [place] [facility] 05/07/2024 15:29:02 Hep A, pediatric, unspecified formulation 9 completed FLAKITA CASTANEDA NP Attn: Accounting,[address] [facility], [place], [address], [place] [facility] 05/07/2024 15:29:02 meningococcal C conjugate 9 completed FLAKITA CASTANEDA NP Attn: Accounting,[address] [facility], [place], [address], [place] [facility] 05/07/2024 15:29:02 DTaP 9 completed FLAKITA CASTANEDA NP Attn: Accounting,[address] [facility], [place], [address], [place] [facility] 05/07/2024 15:29:02 Tdap 4 completed FLAKITA CASTANEDA NP Attn: Accounting,[address] [facility], [place], [address], [place] [facility] 05/09/2024 20:30:52 Past Encounters Encounter ID Performer Location Encounter Start Date Encounter Closed Date Diagnosis/Indication Diagnosis SNOMED-CT Code Diagnosis ICD10 Code Diagnosis Note [id number] Liya Ray ([facility]) [address] [place] [address] 12/13/2015 11:01:31 12/13/2015 12:13:24 Secondary eczematous condition 856807715 L30.8 PATIENT ADVISED TO REFRAIN FROM HOT WATER USE ON SKIN AND TO USE MILD SOAP PRODUCTS. [id number] Lyia Ray ([facility]) [address] [place] [address] 12/28/2015 09:04:21 12/28/2015 09:55:12 Morbid obesity 668687377 E66.01 [id number] Liya Hutchinson Chay ([facility]) [address] [place] [address] 02/02/2016 14:50:29 02/02/2016 15:16:00 Pleurisy 341269138 R09.1 now resolved. Taking Cataflam 50 mg tid. [id number] [facility] ([facility]) [address] [facility] [address] [place] [address] 12/18/2017 15:49:05 12/20/2017 14:58:08 Community acquired pneumonia 949794859 J18.9 Counseled on pneumonia- will repeat chest x-ray, advised good handwashin g, taking OTC medication like Mucinex as needed. f/u as needed Body mass index 40+ - severely obese 442280723 Z68.44 Depression screening 171 726500 Z13.89 [id number] TALITA Hill 14 IM [address] [facility] [address] [place] [address] 08/18/2018 11:01:20 08/19/2018 14:29:39 Adult health examination 555399784 Z00.00 Counseled on the importance of healthy diet and exercise for weight loss. Fasting lab work. Advised adequate calcium intake through dairy and dark leafy vegetables . Adequate hydration and decrease soda intake. Advised on immunizati ons-refuse s Influenza. Morbid obesity 286126748 E66.01 Body mass index 40+ - severely obese 704883970 Z68.44 [id number] TALITA Hill 14 IM [address] [facility] [address] [place] [address] 09/15/2018 11:12:50 09/16/2018 08:38:54 Morbid obesity 437534683 E66.01 Carefully monitor food intake (use Fitness pal or another way of tracking food intake). Continue current dietary habits-go back to exercising 5 days a week. Discussion > 15 minutes on diet and exercise and the importance of not quitting even when she has a bad week of eating. f/u 1 month for weigh in and review of food log Dietary ma nagement surveillance 999587503 Z71.3 High hemog lobin A1c level 766136957 R73.09 [id number] TALITA Hill 14 [address] [facility] [place] [address] 10/16/2018 10:42:53 10/16/2018 16:27:29 Morbid obesity 141932003 E66.01 Carefully monitor food intake (use Fitness pal or another way of tracking food intake). Continue current dietary habits-go back to exercising 5 days a week. Discussion > 15 minutes on diet and exercise and the importance of not quitting even when she has a bad week of eating. f/u 1 month for weigh in and review of food log-good job on weight loss so far Upper resp iratory infection 50513441 J06.9 Counseled on URI-Warm salt water gargles, rest, increase fluids. Over the counter decongesta nt. Tylenol/Ib uprofen for pain/fever , humidifier in the house. call office for any worsening of s/s Dietary gerardo yoannaracquel surveillance 969257425 Z71.3 [id number] TALITA Hill [address] [facility] [place] [address] 10/27/2018 16:48:40 10/28/2018 09:33:46 Exposure to mold 5274346390 6944728 Z77.120 Pt advised that she has no s/s nor is there a way to test for mold in the body-f/u as needed [id number] TALITA Hill 14 [address] [facility] [place] [address] 11/13/2018 10:27:43 11/13/2018 16:44:43 Morbid obesity 912600374 E66.01 Carefully monitor food intake (use Fitness pal or another way of tracking food intake). Work on going back to dietary habits-go back to exercising 5 days a week. Discussion > 15 minutes on diet and exercise and the importance of not quitting even when she has a bad week of eating. f/u 1 month for weigh in and review of food log-good job on weight loss so far Dietary gerardo brian surveillance 784736792 Z71.3 [id number] TALITA Hill [address] [facility] [address] 08/18/2019 11:17:39 08/20/2019 16:22:20 Morbid obesity 680792595 E66.01 Carefully monitor food intake (use Fitness pal or another way of tracking food intake). Work on going back to dietary habits-go back to exercising 5 days a week. Discussion > 15 minutes on diet and exercise and the importance of not quitting even when she has a bad week of eating. f/u 1 month for weigh in Dietary [facility] surveillance 098142968 Z71.3 Body mass index 40+ - severely obese 792238173 Z68.44 [id number] Maryann Ray 14 IM [address] [facility] [place] [address] 09/14/2020 08:33:35 10/08/2020 03:47:22 Morbid obesity 825354399 E66.01 Adult [facility] examination 492490455 Z00.00 [id number] Radha Soto MA [facility] [address] [place] [address] 01/02/2021 12:10:28 01/03/2021 14:28:14 Headache 00341388 R51.9 - Keep a headache diary to see if you can determine what are your headache/m igraine triggers - Take otc Excedrin migraine, eliminate mountain dew zero - Lay in a dark room if possible and try to relax - Drink plenty of water, get appropriat e rest, try auto relaxation , avoid triggers if known Body mass index 40+ - severely obese 592581680 Z68.44 - d/w patient importance of implementi ng some sort of exercise regimen at least 20-30 minutes activity/d ay, - start 100 gm low car diet, use of free carb home health care case manager matthew discussed - return for weight check next month Hyperlipid emia screening 660743410 Z13.878 [id number] FLAKITA CASTANEDA NP [facility] [address] [place] [address] 02/01/2021 10:44:07 02/01/2021 18:43:28 Morbid obesity 421253261 E66.01 - Dwp importance of consistenc y with low carb diet, and 20-30 minutes of exercise - Patient also encouraged to try and get at least 7-8 hours of sleep per night. - Dwp increase water intake to 80-120 oz per day. - RTC in 3 months Mild depression 94996000 3 F32.0 - phq-9 score positive for moderate depression . - Discussed symptoms of depression /anxiety as well as the different treatment types. - Encouraged psychother apy in adjunct with medication therapy,. Patient stated she is not interested in taking medication , agreed to speak with counselor - All questions and concerns were addressed. - Pt is to monitor symptoms and RTC sooner if symptoms are worsening or not improving. 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 Pt agreeable to plan of care.-Requ esting lab work, advised to alert PCP for routine lab work.-ER precaution s discussed. [id number] GOOD GASPAR 14 IM [address] [facility] [address] [place] [address] 08/08/2021 14:11:17 08/09/2021 16:21:27 Hemorrhoids 94963844 K64.9 History of SARS-CoV-2 29 74090352 14738128 Z86.16 - Patient test positive for COVID 19 on 07/12 Prediabetes 606622579 R7 3.03 Pneumonia caused by SARS-CoV-2 9290714136 58641363 J12.82 - Patient diagnosed with COVID pneumonia on 07/19/21. Patient reports feeling well. Dwp will repeat chest xray in 1 week. [id number] FLAKITA CASTANEDA NP [facility] [address] [place] [address] 11/22/2021 13:32:46 11/27/2021 10:22:09 Body mass index 40+ - severely obese 405343282 Z68.44 - d/w patient importance of implementi ng some sort of exercise regimen at least 20-30 minutes activity/d ay, - start 100 gm low car diet, use of free carb home health care case manager matthew discussed - return for weight check next month Sinusitis 85640978 J32.9 - reports resolve of symptoms with Loss of hair 843807624 L 65.9 [id number] Moni Pablo [facility] [address] [place] [address] 12/11/2021 08:14:13 12/14/2021 15:28:45 Sinusitis 07539215 J32.9 - Counseled on sinusitis and medication s/antibiot ic use. Ibuprofen/ Tylenol for pain. Encouraged to increase fluid intake. [id number] FLAKITA CASTANEDA NP [facility] [address] [place] [address] 01/03/2022 09:02:36 01/04/2022 10:25:29 Acute bronchitis 07172838 J20.9 Advised on the causes of bronchitis and the typical course of the disease. ATB. Instructed on the use of OTC remedies for sx management . Discussed signs of respirator y compromise . Advised on reasons to call or follow up over the next few days. Verbalized understand ing. [id number] FLAKITA CASTANEDA NP [place] [address] [place] [address] 02/21/2022 14:27:40 02/23/2022 10:42:39 Morbid obesity 535341086 E66.01 - Patient reports she has not been been following low carb- Dwp importance of consistenc y with low carb diet, and 20-30 minutes of exercise - Patient also encouraged to try and get at least 7-8 hours of sleep per night. - Dwp increase water intake to 80-120 oz per day. - RTC in 6 weeks Tonsillar debris 5069363 00 J35.8 Mild anxiety 02768761 F4 1.8 - Patient states she has been working on getting her license. Patient reports anxiety while driving. Patient denies history of anxiety.- Discussed symptoms of depression /anxiety as well as the different treatment types.- Encouraged psychother apy- All questions and concerns were addressed. - Pt is to monitor symptoms and RTC sooner if symptoms are worsening or not improving. [id number] FLAKITA CASTANEDA NP [facility] [address] [place] [address] 05/07/2024 15:00:48 05/13/2024 12:49:28 Urinary symptoms 932997108 R39.9 - Counseled thoroughly about UTI.- increase fluid intake-jani er, lemonade, cranberry juice, no tub baths, wipe front to back,- Urine for C & S Morbid obesity 693855902 E66.01 advised low fat, low cholestero l, low carb diet, regular exercise and weight reduction. Prediabetes 162325013 R7 3.03 Adult [facility] th examination 032270526 Z00.01 - Discussed with patient findings, diagnoses, and prognosis. - Discussed plan of care including treatment options, risks, and benefits with patients. Patient expressed understand ing.- The following interventi ons were recommende d: heart healthy low-fat, low-sodium diet, ideal body weight, regular exercise, medication s compliance , and medical follow-up as noted. Hyperlipid emia screening [id number] Z13.220 History an d physical examination, pre-employment [id number] Z02.1 - No restrictio ns- Assessment negative, except where indicated Administra tion of diphtheria, pertussis, and tetanus vaccine [id number] Z23 - recommende d Tdap vaccinatio n [id number] FLAKITA CASTANEDA NP [facility] [address] [place] [address] 05/25/2024 15:43:16 05/27/2024 11:38:41 Recurrent urinary tract infection [id number] N39.0 The patient has a history of recurrent UTIs and has recently completed an antibiotic course with initial symptom improvemen t. New symptoms of left flank pain may suggest a possible kidney infection or incomplete resolution of the infection. Based on the lab results from 05/20: Urinalysis Findings: Specific [place]: 1.025 (normal range)pH: 5.0 (normal range)WBC Esterase: 25 / L (positive) indicates possible infection or inflammati on.Nitrite : Negative (not indicative of bacterial infection, as nitrite is often associated with E. coli).Prot ein: 15 mg/dL (trace amount) could indicate mild proteinuri a.Bacteria : Few (positive) suggests a possible infection, though not significan t.Crystals : Calcium oxalate common and usually not clinically significan t unless symptomati c.CBC Findings: WBC: 13.14 (elevated) suggests possible infection or inflammati on.Absolut e Neutrophil s: 8.52 (elevated) supports a likely infectious process.Ab solute Lymphocyte s: 3.74 (elevated) may indicate a response to infection or another underlying issue.Hemo globin and Hematocrit : Normal but on the lower end of the reference range, which could be relevant if symptoms are chronic or if there's significan t blood loss elsewhere. Left flank pain [id number] 9 R10.9 Suspected pyelonephr itis. Differenti al diagnosis includes kidney stone, urinary tract infection, or other renal pathology. Consider CT abdomen/pe lvis if symptoms worsen or ultrasound is inconclusi ve.Follow- up in 48-72 hours or sooner if pain worsens or fever develops. HIV screening [id number] Z11.4 Screening for malignant neoplasm of cervix [id number] Z12.4 Health Concerns Section Related Observation LastModified by Organization Detai ls LastModified Time None Recorded Concern Status LastModified by Organization Details LastModified Time None Recorded Advance Directives Directive None Recorded Payers Encounter Date Sequence Insurance Name Policy Number Policy Evans Covered Member ID Evans Member ID Guarantor Name 12/11/2021 1 [facility] (MEDICAID HMO) [id number] Rima Graves [id number] Rima Gretchen Graves 01/03/2022 1 [facility] (MEDICAID HMO) [id number] Rima Graves [id number] Rima Gretchen Graves 02/21/2022 1 [facility] (MEDICAID HMO) [id number] 0003 Rima Graves [id number] Rima Gretchen Graves 05/07/2024 1 [facility] (MEDICAID HMO) [id number] 0003 Rima Graves [id number] Rima Gretchen Graves 05/25/2024 1 [facility] (MEDICAID HMO) [id number] 0003 Rima Graves [id number] Rima Gretchen Graves Notes Date Note Type Note Provider Name and Address Organization Details Recorded Time 2 text/html Sinusitis/AllergyReported bypatient.Associated Symptoms:no fever; no sore throat;headache forehead;nasal passage blockage bilaterally Quality:congested;producti ve cough Context:recent sick contacts Risk Factors:no current smoking or tobacco use Alleviating factors:nothing gives relief Prior Treatmentoral antibiotics:amoxicillian Ms. Landry presented via telephone communication with c/o cough, stuffy nose x 1 week. Patient states she was treated for sinus infection a x 1 week ago with no improvement. Patient reports stomach cramps and diarrhea have resolved. Moni chakraborty, [place] - [facility] 12/12/2021 08:11:30 2 text/html Upper Respiratory SymptomsReported bypatient.Location:head; chest Quality:productive cough;colored phlegm;congested Severity:moderate Duration:symptoms lasting over 2 weeks Onset/Timing:gradual Context:no foreign travel; non-smoker;sick contact Associated Symptoms:no shortness of breath; no wheezing; no fever;yellow sputum Ms. Landry presented via telephone communication with continued c/o cough, chest congestion and stuffy nose x 3 weeks. FLAKITA CASTANEDA NP Attn: Accounting,[address] [place], [address] 01/03/2022 14:55:28 2 text/html Anxiety/DepressionReported bypatient.Quality:increase d anxiety(while driving) Severity:denies suicidal ideations; able to maintain relationships; does not interfere with activities of daily living Duration:symptoms lasting over 2 weeks Context:major life stressors(learning how to drive) Associated Symptoms:denies homicidal ideations; no visual/auditory hallucinations;anxietyObes ityReported bypatient.Context:no inhaled steroids; no oral steroids Associated Symptoms:no depression; no hypothyroidism;chronic illness(severe obesity) Co-morbidities:no new co-morbidities since last visit Lifestyle changes:no changes in living situation; motivated to continue lifestyle changes; losing weight; exercising more Nutrition:poor compliance with diet;not restricting concentrated sugars Physical Activity:reported frequency of moderate level of physical activity per week: 2-4 days Ms. Landry presented in office today for f/u appointment. Patient with c/o small whitish yellow debris on tonsils. Patient reports increased anxiety when driving. FLAKITA CASTANEDA NP Attn: Accounting,[address] [facility], [place], [address], [facility] 02/23/2022 13:09:55 4 text/html Anxiety/DepressionReported bypatient.Quality:mood worse;increased anxiety Severity:denies suicidal ideations Context:no major life stressors Associated Symptoms:denies homicidal ideations; no visual/auditory hallucinationsUrinary FrequencyReported bypatient.Context:success with short term antibiotics; success with extermination inspector antibiotics; success with Pyridium Associated Symptoms:no abdominal pain; no back pain; no chills; no dribbling; no pain with urination; no hesitancy; no urine odor; no incontinence; no fever; no urge incontinence;blood in the urine(pink tinge when wiping);feelings of urgency Ms. Landry presented to the office today to reestablish care, having not been seen since February 2022. 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 The patient reports symptoms of pink-tinged urine and increased urinary frequency. FLAKITA CASTANEDA NP Attn: Accounting,[address] [place], [address], [facility] 05/09/2024 20:42:53 4 text/html Recurrent UTIReported bypatient.Severity:moderat e Associated Symptoms:urgency;flank pain(left);back pain Ms. Landry presented to the ER on May 10 and May 20 with complaints of recurrent urinary tract infections (UTIs). She completed an 8-day course of antibiotics with reported improvement in her UTI symptoms. However, she is now experiencing left-sided pain and back pain. FLAKITA CASTANEDA NP Attn: Accounting,[address] [place], [address], [facility] 05/25/2024 17:27:49 OBGyn Episode No OBEpisode recorded.
--- OUTSIDE RECORDS SUMMARY | 2024-11-24 08:58 | XMS_ITS | Clinical Summary ---
Author Organization [facility] Address [address] [place] [address] Phone Care Team Providers Care Personnel Records Clerk Name Role Phone Isa, Flakita Wiggins APRN, HEIKE Primary Care Provider Allergies No known active allergies Medications naproxen (NAPROSYN) 500 MG Tablet Take 1 Tablet by mouth 2 times daily (with meals). 20 Tablet 1 Active Additional Information Patient not taking.Reported on 12/22/2020 guaiFENesin (Mucinex) 600 MG TABLET SR 12 HR Take 1 Tablet by mouth 2 times daily. 30 Tablet 1 Active traMADol (ULTRAM) 50 MG Tablet Take 1 Tablet by mouth every 8 hours as needed for Moderate or more severe pain. 12 Tablet 1 Active ondansetron (ZOFRAN) 4 MG Tablet Take 1 Tablet by mouth every 6 hours as needed for Nausea - 1st line. 10 Tablet 1 Active guaiFENesin (Mucinex) 600 MG TABLET SR 12 HR Take 1 Tablet by mouth 2 times daily. 180 Tablet 3 Active methylPREDNISol one (MEDROL DOSPACK) 4 MG Tablet Therapy Pack See product package insert for dosing schedule 21 Tablet 3 Active albuterol 108 (90 Base) MCG/ACT Aerosol Solution take 2 Puffs by inhalation every 6 hours as needed for Wheezing. 8 g 3 Active ibuprofen (MOTRIN) 200 MG Tablet Take 4 Tablets by mouth every 6 hours as needed for Fever. 90 Tablet 3 Active oseltamivir (Tamiflu) 75 MG Capsule Take 1 Capsule by mouth 2 times daily for 5 days. 10 Capsule 5 11/09/19 25 benzonatate (TESSALON) 100 MG Capsule Take 1 Capsule by mouth 3 times daily as needed for Cough for up to 10 days. 30 Capsule 5 11/14/19 25 Active Problems No known active problems Encounters Date Type Department Care Team Description 11/03/2024 6:34 PM FURRIER APPRENTICE - 11/03/2024 7:04 PM FURRIER APPRENTICE Emergency [facility] [address] [place] [address] Maura Casey, SWEEP MOLDER, TAX EXAMINING TECHNICIAN Influenza A Discharge Disposition: Discharged to home or Selfcare 11/03/2024 Travel from Last 3 Months Social History Tobacco Use Types Packs/Day Years Used Date Smoking Tobacco: Former Smokeless Tobacco: Never Alcohol Use Standard Drinks/Week Comments No 0 (1 standard drink = 0.6 oz pur e alcohol) Comments No Sex and Gender Information Value Date Recorded Sex Assigned at Not on file Legal Sex Female 2:13 PM CDT Gender Identity Not on file Sexual Orientation Not on file Last Filed Vital Signs Vital Sign Reading Time Taken Comments Blood Pressure 142/84 11/03/2024 6:39 PM FURRIER APPRENTICE Pulse 78 11/03/2024 6:39 PM FURRIER APPRENTICE Temperature 37.8 C (100.1 F) 11/03/2024 4:56 PM FURRIER APPRENTICE Respiratory Rate 18 11/03/2024 6:39 PM FURRIER APPRENTICE Oxygen Saturation 100% 11/03/2024 6:39 PM FURRIER APPRENTICE Inhaled Oxygen Concentration - - Weight 188.2 kg (415 lb) 11/03/2024 4:56 PM FURRIER APPRENTICE Height 165.1 cm (5' 5 ) 11/03/2024 4:56 PM FURRIER APPRENTICE Body Mass Index 69.06 11/03/2024 4:56 PM FURRIER APPRENTICE Plan of Treatment Health Maintenance Due Date Last Done Comments Hepatitis C Virus (HCV) Screening 1994 Pap Smear 2015 Influenza Immunization (#1) 2024 SARS-COV-2 Immunization ( season) 2024 Cervical Cancer Screening (CCS) 2024 HPV/Cotest 2024 Respiratory Syncytial Virus (RSV) Immunization (Adult) (1 - 1-dose 75+ series) 2069 Hepatitis B Immunization Completed 995, 1994, 1994 Human Papillomavirus (HPV) Immunization Discontinued 11/25/2009, 06/21/2009, 04/13/2009 DTaP/Tdap/Td Immunization Discontinued 2023, 04/13/2009, 11/02/1998, Additional history exists TdaP Immunization Completed 05/07/2024, 04/13/2009 Meningococcal Immunization (ACWY) Aged Out No longer eligible based on patient's age to complete this topic Pneumococcal Immunization Combined Aged Out No longer eligible based on patient's age to complete this topic Rotavirus Immunization Aged Out No lo nger eligible based on patient's age to complete this topic Procedures Procedure Name Priority Date/Time Associated Diagnosis Comments GROUP A STREP BY PCR STAT 11/03/2024 4:59 PM FURRIER APPRENTICE RSV,SARS-COV-2,INFL UENZA A&B BY PCR STAT 11/03/2024 4:59 PM FURRIER APPRENTICE from Last 3 Months Results * GROUP A STREP BY PCR (11/03/2024 4:59 PM FURRIER APPRENTICE) Pathologist [facility] GROUP A STREP BY PCR NOT DETECTED NOT DETECTED 11/03/2024 5:36 PM FURRIER APPRENTICE [facility] Swab STRUCTURE OF ANTERIOR PORTION OF NECK / Unknown Non-Phlebotomy Collection / Unknown 11/03/2024 4:59 PM FURRIER APPRENTICE 11/03/2024 5:07 PM FURRIER APPRENTICE us Maura Casey APRN, TAX EXAMINING TECHNICIAN MICROBIOLOGY - GEN ERAL ORDERABLES Final Result [facility] [address] [place] [address] * (ABNORMAL) RSV,SARS-COV-2,INFLUENZA A&B BY PCR (11/03/2024 4:59 PM FURRIER APPRENTICE) Pathologist [facility] FLU A Positive(A) Negative, Error 11/03/2024 5:48 PM FURRIER APPRENTICE [facility] FLU B Negative Negative 11/03/2024 5:48 PM FURRIER APPRENTICE [facility] RESP SYNC VIRUS Negative Negative 5:48 PM FURRIER APPRENTICE [facility] SARSCOV2 NOT DETECTED (Reference Range for this test is Not Detected) 11/03/2024 5:48 PM FURRIER APPRENTICE [facility] Comment:This test was perfor med by a [employer] Sheets Supervisor PCR Method. Swab NASOPHARYNGEAL STRUCTURE / Unknown Non-Phlebotomy Collection / Unknown 11/03/2024 4:59 PM FURRIER APPRENTICE 11/03/2024 5:07 PM FURRIER APPRENTICE us Maura Casey APRN, HEIKE MICROBIOLOGY - GEN ERAL ORDERABLES Final Result [facility] [address] [place] [address] from Last 3 Months Insurance MEDICAID [place] Care Teams Personnel Records Clerk Relationship Specialty Start Date End Date Flakita Moss APRN, TAX EXAMINING TECHNICIAN [address] [place] [address] PCP - General Advanced Practice Nurse 02/13/21
--- OUTSIDE RECORDS SUMMARY | 2024-11-24 08:58 | XMS_ITS | Referral Summary ---
Author Organization [facility] Address [address] [place] [address] Care Team Providers Care Seasonal Clerk Name Role Phone No, Physician Unavailable Flakita Moss NP Primary Care Provider [phone] Allergies Active Allergy Reactions Criticality Noted Date Comments Wasp Venom Swelling High 11/16/2019 Swelling at site where stung. Medications guaiFENesin-codein e (GUAITUSS AC) liquid 100-10 mg/5 mL Take 5 mL by mouth 4 (four) times a day as needed for cough. 120 mL 12/05/19 18 Active Additional Information Patient not taking.Reported on 11/16/2019 mupirocin (BACTROBAN) 2 % ointment Apply topically 3 (three) times a day. 22 g 03/30/20 18 Active Additional Information Patient not taking.Reported on 11/16/2019 dextromethorphan (DELSYM) syrup 30 mg/5 mLIndications:Coug h Take 10 mL (60 mg total) by mouth 2 (two) times a day 89 mL 12/07/19 19 Active Additional Information Patient not taking.Reported on 11/16/2019 predniSONE (DELTASONE) 10 mg tabletIndications: Anti-inflammatory Take 6 tablets oral daily for 1 days then 4 tablets daily for 1 days then 3 tablets daily for 1 days then 2 tablets daily for 1 days then 1 tablet daily for 1 days then stop. 16 tablet 12/07/19 19 Active Additional Information Patient not taking.Reported on 11/16/2019 albuterol HFA (PROVENTIL HFA,VENTOLIN HFA,PROAIR HFA) 90 mcg/actuation inhaler Inhale 2 puffs every 4 (four) hours as needed for wheezing 1 Inhaler 12/07/19 19 Active Additional Information Patient not taking.Reported on 11/16/2019 ondansetron ODT (ZOFRAN-ODT) 4 mg disintegrating tablet Dissolve 1 tablet for mild to moderate nausea or vomiting or 2 tablets for severe nausea or vomiting oral twice a day as needed. 15 tablet 02/14/20 19 Active Additional Information Patient not taking.Reported on 11/16/2019 loperamide (IMODIUM) 2 mg capsule Take 1 capsule (2 mg total) by mouth 4 (four) times a day as needed for diarrhea 20 capsule 02/14/20 19 Active Additional Information Patient not taking.Reported on 11/16/2019 promethazine-DM (PROMETHAZINE-DM) 1.25-3 mg/mL syrup Take 5 mL by mouth 4 (four) times a day as needed for cough (And runny nose) May substitute with Tussin AC same amount and directions 118 mL 09/03/20 19 Active Additional Information Patient not taking.Reported on 11/16/2019 butalbital-aspirin -caffeine (FIORINAL) 50-325-40 mg capsule Take 1 capsule by mouth every 4 (four) hours as needed for headaches 14 capsule 05/31/20 20 Active HYDROcodone-acetam inophen (NORCO) 5-325 mg per tabletIndications: Pain Take 1 tablet by mouth every 6 (six) hours as needed for pain 10 tablet 07/10/20 20 Active ondansetron (ZOFRAN) 4 mg tablet Take 1 tablet (4 mg total) by mouth every 6 (six) hours 12 tablet 07/11/20 21 Active azithromycin (ZITHROMAX) 250 mg tablet Take 1 tablet (250 mg total) by mouth daily Take first 2 tablets together, then 1 every day until finished. 6 tablet 07/19/20 21 Active benzonatate (TESSALON) 100 mg capsuleIndications :Cough Take 1 capsule (100 mg total) by mouth every 8 (eight) hours 21 capsule 07/19/20 21 Active ibuprofen (ADVIL,MOTRIN) 600 mg tablet Take 1 tablet (600 mg total) by mouth every 6 (six) hours as needed for pain 0 07/13/20 23 Active Active Problems Problem Noted Date Diagnosed Date Acute bronchitis 09/03/2019 Acute pharyngitis 12/04/2017 Resolved Problems Problem Noted Date Diagnosed Date Resolved Date Cellulitis of left leg 03/30/201811/16 Viral upper respiratory tract infection 09/04/2017 11/16/2018 Social History Tobacco Use Types Packs/Day Years Used Date Smoking Tobacco: Former Smokeless Tobacco: Never Alcohol Use Standard Drinks/Week Comments No 0 (1 standard drink = 0.6 oz pur e alcohol) Personal Safety Answer Date Recorded Have you ever been in or are you currently in a harmful physical or emotional relationship or is someone making you feel afraid or unsafe? Denies 07/13/2023 Comments No Sex and Gender Information Value Date Recorded Sex Assigned at Not on file Legal Sex Female 7:58 AM GLASSWARE ENGRAVER Gender Identity Not on file Sexual Orientation Not on file Last Filed Vital Signs Vital Sign Reading Time Taken Comments Blood Pressure 156/84 07/13/2023 12:05 PM CDT Pulse 88 07/13/2023 12:05 PM CDT Temperature 36.2 C (97.2 F) 07/13/2023 8:35 AM CDT Respiratory Rate 16 07/13/2023 12:05 PM CDT Oxygen Saturation 98% 07/13/2023 12:05 PM CDT Inhaled Oxygen Concentration - - Weight 170.1 kg (375 lb) 07/13/2023 8:35 AM CDT Height 165.1 cm (5' 5 ) 07/19/2021 8:18 AM GLASSWARE ENGRAVER Body Mass Index 62.4 07/19/2021 8:18 AM GLASSWARE ENGRAVER Plan of Treatment Not on file [place] [address] [place] [address] [facility] Care Teams Seasonal Clerk Relationship Specialty Start Date End Date Flakita Moss NP [address] [address] PCP - General 07/11/21 No, Physician 09/22/17
--- OUTSIDE RECORDS SUMMARY | 2024-11-24 08:58 | XMS_ITS | Clinical Summary ---
Author Organization [facility] Address [address] [place] [address] Care Team Providers Care Occupational Therapist Aide Name Role Phone No, Physician Unavailable Flakita Moss NP Primary Care Provider [phone] Allergies Active Allergy Reactions Criticality Noted Date [...] on file Legal Sex Female 7:58 AM PAVING RAMMER Gender Identity Not on file Sexual Orientation Not on file Obstetrics History Last Filed Vital Signs Vital Sign Reading [...] cm (5' 5 ) 07/19/2021 8:18 AM PAVING RAMMER Body Mass Index 62.4 07/19/2021 8:18 AM PAVING RAMMER Plan of Treatment Health Maintenance Due Date Last Done Comments Cervical Cancer Screening 1994 Depression Screening 1994 Hepatitis C Screening 1994 Varicella Vaccines (1 of 2 - 13+ 2-dose series) 2007 Regular Well Visit/Exam 18-64 2012 DTaP/Tdap/Td Vaccine (7 - Td or Tdap) 04/13/2019 04/13/2009, 11/02/1998, 07/03/1995, Additional history exists Influenza Vaccine (#1) 2024 06/21/2009 Hepatitis B Screening Completed 07/03/1995 , 1994, 1994 HPV Vaccines Completed 11/25/2009, 06/09, 04/13/2009 Pneumococcal vaccine <65 Aged Out No longer eligible based on patient's age to complete this topic Insurance [facility] Care Teams Occupational Therapist Aide Relationship Specialty Start Date End Date Flakita Moss NP [address] [address] PCP - General 07/11/21 No, Physician 09/22/17
[2024-11-24 09:08] LABS: EDCOVIDSCREEN Negative (Negative); EDINFLUASCREEN Negative (Negative); EDINFLUBSCREEN Negative (Negative)
== END 2024-11-24 09:12 | disposition home or self-care (01) ==
PROVIDERS: Emergency Provider Nurse Practitioner Family; PCP Nurse Practitioner Family
DX: B34.9 Viral infection, unspecified (principal); Z20.822 Contact with and (suspected) exposure to COVID-19; Z87.891 Personal history of nicotine dependence
CPT/HCPCS: 87426; 87804; 99213; G0463

== ENCOUNTER 2025-08-06 10:31 | Emergency (ER) | payer OTHER, SELFPAY ==
--- OUTSIDE RECORDS SUMMARY | 2025-08-06 10:33 | XMS_ITS | Clinical Summary ---
Author Organization [facility] Address [address] [place] [address] Care Team Providers Care Health Informatics Specialist Name Role Phone No, Physician Unavailable Flakita Moss NP Primary Care Provider [phone] Allergies Active Allergy Reactions Criticality Noted Date [...] on file Legal Sex Female 7:58 AM PUBLIC SAFETY DISPATCHER Gender Identity Not on file Sexual Orientation [...] 8:35 AM CDT Height 165.1 cm (5' 5) 07/19/2021 8:18 AM PUBLIC SAFETY DISPATCHER Body Mass Index 62.4 07/19/2021 8:18 AM PUBLIC SAFETY DISPATCHER Plan of Treatment Health Maintenance Due Date Last Done Comments Cervical Cancer Screening 1994 Depression Screening 1994 Hepatitis C Screening 1994 Varicella Vaccines (1 of 2 - 13+ 2-dose series) 2007 Regular Well Visit/Exam 18-64 2012 DTaP/Tdap/Td Vaccine (7 - Td or Tdap) 04/13/2019 04/13/2009, 11/02/1998, 07/03/1995, Additional history exists Influenza Vaccine (#1) 2025 06/21/2009 Hepatitis B Screening Completed 07/03/1995 , 1994, 1994 HPV Vaccines Completed 11/25/2009, 06/09, 04/13/2009 Pneumococcal vaccine <65 Aged Out No longer eligible based on patient's age to complete this topic Insurance [facility] Care Teams Health Informatics Specialist Relationship Specialty Start Date End Date Flakita Moss NP [address] [address] PCP - General 07/11/21 No, Physician 09/22/17
--- OUTSIDE RECORDS SUMMARY | 2025-08-06 10:33 | XMS_ITS | Clinical Summary ---
Author Organization [facility] Address [address] [place] [address] Phone Care Team Providers Care Administrative Volunteer Name Role Phone Isa, Flakita Wiggins APRN, HEIKE Primary Care Provider Allergies Active Allergy Reactions Criticality Noted Date Comments Wasp Venom Protein Swelling High 11/16/2019 wasp venoms Medications dicyclomine (BENTYL) 20 MG Tablet Take 1 Tablet by mouth every 6 hours. 30 Tablet Active Additional Information Patient not taking.Reported on 05/19/2025 nitrofurantoin, monohydrate-mac rocrystal, (Macrobid) 100 MG CapsuleIndicati ons:Urinary Tract Infection Take 1 Capsule by mouth 2 times daily for 7 days. Indications: Urinary Tract Infection 14 Capsule 5 07/30/20 25 Active Problems No known active problems Encounters Date Type Department Care Team Description 07/23/2025 1:56 PM AIRSET CASTER - 07/23/2025 3:38 PM AIRSET CASTER Emergency [facility] Emergency [address] [place] [address] Noe Ding PAC Acute cystitis without hematuria Discharge Disposition: Discharged to home or Selfcare 07/23/2025 Travel 05/19/2025 2:11 PM CDT - 05/19/2025 4:18 PM CDT Emergency [facility] Emergency [address] [place] [address] Maura Casey, MARKETING SERVICES COORDINATOR, PATROL CAPTAIN Acute pain of left knee Discharge Disposition: Discharged to home or Selfcare 05/19/2025 Travel from Last 3 Months Social History [...] Sign Reading Time Taken Comments Blood Pressure 125/64 07/23/2025 3:37 PM AIRSET CASTER Pulse 72 07/23/2025 3:37 PM AIRSET CASTER Temperature 36.9 C (98.4 F) 07/23/2025 1:57 PM AIRSET CASTER Respiratory Rate 16 07/23/2025 3:37 PM AIRSET CASTER Oxygen Saturation 98% 07/23/2025 3:37 PM AIRSET CASTER Inhaled Oxygen Concentration - - Weight 194.6 kg (429 lb 0.2 oz) 07/23/2025 1:57 PM AIRSET CASTER Height 165.1 cm (5' 5) 07/23/2025 1:57 PM AIRSET CASTER Body Mass Index 71.39 07/23/2025 1:57 PM AIRSET CASTER Plan of Treatment Health Maintenance Due Date Last Done Comments Hepatitis C Virus (HCV) Screening 1995 Varicella Immunization (1 of 2 - 13+ 2-dose series) 2007 Pap Smear 2015 Cervical Cancer Screening (CCS) 2024 HPV/Cotest 2024 Influenza Immunization (#1) 2025 SARS-COV-2 Immunization ( season) 2025 Respiratory Syncytial Virus (RSV) Immunization (Adult) (1 - 1-dose 75+ series) 2069 Hepatitis B Immunization Completed 995, 1995, 1995 Human Papillomavirus (HPV) Immunization Completed 11/25/2009, 06/21/2009, 04/13/2009 DTaP/Tdap/Td Immunization Discontinued 2023, [...] Procedure Name Priority Date/Time Associated Diagnosis Comments POCT URINE HCG () STAT 07/23/2025 2:32 PM AIRSET CASTER URINALYSIS REFLEX IF INDICATED BY ABNORMAL RESULTS STAT 07/23/2025 2:30 PM AIRSET CASTER CULTURE, URINE STAT 07/23/2025 2:30 PM AIRSET CASTER POCT GLUCOSE STAT 07/23/2025 2:24 PM AIRSET CASTER XR KNEE 1 OR 2 VIEWS LEFT STAT 05/19/2025 2:27 PM CDT from Last 3 Months Results * POCT Urine HCG () (07/23/2025 2:32 PM AIRSET CASTER) Pathologist [facility] POC URINE Negative POC URINE CONTROL Shop Technician Pass Urine 07/23/2025 2:32 PM AIRSET CASTER Noe Ding PAC POINT OF CARE TESTIN G (MANUAL) Final Result * (ABNORMAL) Urinalysis w/ Reflex (07/23/2025 2:30 PM AIRSET CASTER) Pathologist [facility] SPECIFIC GRAVITY 1.025 1.003 - 1.030 07/23/2025 3:21 PM AIRSET CASTER [facility] URINE PH 5.0 5.0 - 9.0 07/23/2025 3:21 PM AIRSET CASTER [facility] WBC ESTERASE 100 /uL(A) Negative 07/23/2025 3:21 PM AIRSET CASTER [facility] NITRITE Negative Negative 07/23/2025 3:21 PM AIRSET CASTER [facility] PROTEIN, RANDOM URINE 15 mg/dL(A) Negative 07/23/2025 3:21 PM AIRSET CASTER [facility] URINE GLUCOSE, QUAL Negative Negative 07/23/2025 3:21 PM AIRSET CASTER [facility] URINE KETONES Negative Negative 07/23/2025 3:21 PM AIRSET CASTER [facility] UROBILINOGEN Normal Normal mg/dL 07/23/2025 3:21 PM AIRSET CASTER [facility] URINE BLOOD Negative Negative brodie/ul 07/23/2025 3:21 PM AIRSET CASTER [facility] URINALYSIS COLOR Yellow 07/23/20 3:21 PM AIRSET CASTER [facility] URINALYSIS CLARITY Slightly Cloudy 07/23/2025 3:21 PM [facility] WBC (Urine) 51-150(A) Negative, 0-5 /hpf 07/23/2025 3:21 PM AIRSET CASTER [facility] URINE RBC'S 0-2 Negative, 0-2 /hpf 07/23/2025 3:21 PM AIRSET CASTER [facility] EPITHELIAL CELLS Small amount /lpf 2024 3:21 PM AIRSET CASTER [facility] BACTERIA, URINE Few(A) Negative /hpf 07/23/2025 3:21 PM AIRSET CASTER [facility] URINE MUCOUS Few 07/23/2025 3:21 PM AIRSET CASTER [facility] CRYSTALS Calcium oxalate 07/23/2025 3:21 PM [facility] Urine URINE SPECIMEN / Unknown Non-Phlebotomy Collection / Unknown 07/23/2025 2:30 PM AIRSET CASTER 07/23/2025 2:45 PM AIRSET CASTER us Noe Ding PAC URINE ORDERABLES Fin al Result [facility] [address] [place] [address] * Culture, Urine (07/23/2025 2:30 PM AIRSET CASTER) CULTURE RESULTS Mixed Growth or 3 or More Organisms, Probable Collection Contamination, Suggest Repeat 07/24/2025 9:41 PM AIRSET CASTER [facility] Urine URINE SPECIMEN / Unknown Non-Phlebotomy Collection / Unknown 07/23/2025 2:30 PM AIRSET CASTER 07/23/2025 2:45 PM AIRSET CASTER us Noe Blankenship Toña PAC MICROBIOLOGY - GENER AL ORDERABLES Final Result Performing Organization Address City/[facility]/ZIP Co de Phone Number [facility] [address] [place] [address], [place] * POCT Glucose (07/23/2025 2:24 PM AIRSET CASTER) GLUCOSE,BEDSIDE POCT 92 70 - 99 mg/dL 07/23/2025 2:25 PM AIRSET CASTER [facility] Blood 07/23/2025 2:24 PM AIRSET CASTER 07/23/2025 2:25 PM AIRSET CASTER us None Provider POINT OF CARE TESTING Final Resu lt Performing Organization Address City/[facility] Co de Phone Number [facility] [address] [place] [address] * XR KNEE 1 OR 2 VIEWS LEFT (05/19/2025 2:27 PM CDT) Anatomical Region Laterality Modality LOWER EXTREMITY, knee Left Digital Ra diography 05/19/2025 2:27 PM CDT Impressions 05/19/2025 7:32 PM CDT IMPRESSION: No acute osseous findings. Small left knee joint effusion. Narrative 05/19/2025 7:32 PM CDT DICTATING PHYSICIAN: Brayan Montiel M.D., [facility] EXAM: XR KNEE 1 OR 2 VIEWS LEFT 05/19/2025 2:27 PM Patient : 1995 Age: 29 years Gender: Female Number of images: 2 INDICATION: c/o pain in left knee x 2 days. No injury COMPARISON: None FINDINGS: The bones appear to be in anatomic alignment. No fracture is identified. A small suprapatellar knee joint effusion is present. Procedure Note Brayan Zamudio MD - 05/19/2025 DICTATING PHYSICIAN: Brayan Montiel M.D., [facility] EXAM: XR KNEE 1 OR 2 VIEWS LEFT 05/19/2025 2:27 PM Patient : 1995 Age: 29 years Gender: Female Number of images: 2 INDICATION: c/o pain in left knee x 2 days. No injury COMPARISON: None FINDINGS: The bones appear to be in anatomic alignment. No fracture is identified. A small suprapatellar knee joint effusion is present. IMPRESSION: No acute osseous findings. Small left knee joint effusion. us Maura Casey APRN, CNP [employer]MEl DIAGNOSTIC ORD ERABLES Final Result from Last 3 Months Insurance MEDICAID [place] Care Teams Administrative Volunteer Relationship Specialty Start Date End Date Flakita Moss APRN, PATROL CAPTAIN [id number] [place] [address] PCP - General Advanced Practice Nurse 02/13/21
[2025-08-06 10:41] VITALS: BP 155/74; PULSE 94; RESP 20; TEMP 36.6; O2SAT 99
[2025-08-06 11:09] LABS: EDUAAPPEAR Clear; EDUABILI Negative (Negative); EDUABLOOD Negative (Negative); EDUACOLOR1 Yellow; EDUAGLUCOSE Negative (Negative); EDUAKETONE Negative (Negative); EDUALEUKO 1+ (Negative); EDUANITRATE Negative (Negative); EDUAPH 6.0; EDUAPROTEIN Negative (Negative); EDUASPGRAVITY 1.025; EDUAUROBILI 0.2
--- NOTE | 2025-08-06 11:18 | ED.FEMALEGU ---
HPI - Female Genitourinary General Chief complaint: Urogenital-Female Stated complaint: uti Time Seen by Provider: 08/06/25 11:00 Source: patient Mode of arrival: ambulatory Limitations: no limitations History of Present Illness HPI Narrative: 30 yo F presents with c/o decreased urinary output, dysuria for 2 days. Was seen for recent UTI. took macrobid and thinks did not help. Denes . No N/V, fever. all systems reviewed and negative except as noted above. 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 There is no relevant family history pertinent to the presenting complaint. Exam Narrative: GENERAL: This is a well-nourished, well-developed patient, in no apparent distress. HEAD: normocephalic, atraumatic. EYES: PERRL. Sclera clear/white. Vision is grossly intact. EARS: External ears normal NOSE: External nose normal NECK: Neck supple, non-tender without lymphadenopathy, masses or thyromegaly. CARDIOVASCULAR: Regular rate and rhythm without murmurs, gallops, or rubs. RESPIRATORY: Clear to auscultation. Breath sounds equal bilaterally. No wheezes, rales, or rhonchi. SKIN: warm, Dry, intact with no suspicious lesions or rash, good texture and turgor. NEURO: awake, alert, and oriented to person, place and time. There were no obvious focal neurologic abnormalities. EXTREMITIES: No joint tenderness, effusion, or edema noted. Course Course Level of Care: Express Care Visit Vital Signs Vital signs: Vital Signs Temperature 36.6 C 08/06/25 10:41 Pulse Rate 94 08/06/25 10:41 Respiratory Rate 20 11/28/25 10:41 Blood Pressure 155/74 H 08/06/25 10:41 Pulse Oximetry 99 08/06/25 10:41 Oxygen Delivery Autopap 08/06/25 10:41 Temperature 36.6 C 08/06/25 10:41 Pulse Rate 94 08/06/25 10:41 Respiratory Rate 20 08/06/25 10:41 Blood Pressure 155/74 H 08/06/25 10:41 Pulse Oximetry 99 08/06/25 10:41 Oxygen Delivery Autopap 08/06/25 10:41 Reviewed MDM - Female Genitourinary MDM Narrative Medical decision making narrative: urinalysis 1+ leukocytes. Will treat with antibiotic for urinary tract infection due to patient's symptoms. Lab Data Labs: Lab Results 08/06/25 Range/Units 11:07 POC Urine Color Yellow POC Urine Clarity Clear POC Urine pH 6.0 POC Ur Specif Vale 1.025 POC Urine Protein Negative (Negative) POC Ur Glucose (UA) Negative (Negative) POC Urine Ketones Negative (Negative) POC Urine Blood Negative (Negative) POC Urine Nitrite Negative (Negative) POC Urine Bilirubin Negative (Negative) POC Urine Urobilinogen 0.2 POC U Leukocyte Esteras 1+ (Negative) Discharge Plan Discharge Clinical Impression: Urinary tract infection Patient Disposition: Home Condition: Stable Instructions: Antibiotic Form, Urinary Tract Infection in Women (ED) Additional Instructions: Take antibiotic as prescribed until gone. Drink at least 64 ounces of water a day. See your doctor if not improving. Patient Language: Kinyarwanda Prescriptions: New amoxicillin-pot clavulanate [Augmentin] 500-125 mg tablet 1 tablet PO BID 5 Days Qty: 10 0RF Follow-up/Referrals: Isa,HAIDER Boggs [Primary Care Provider, Unknown] Time of Disposition: 11:13
== END 2025-08-06 11:21 | disposition home or self-care (01) ==
PROVIDERS: Emergency Provider Nurse Practitioner Family; PCP Nurse Practitioner Family
DX: N39.0 Urinary tract infection, site not specified (principal); Z87.891 Personal history of nicotine dependence
CPT/HCPCS: 81003; 87086; 99213; G0463